=== PATIENT | female | born 1950 | race Caucasian/White ===

== ENCOUNTER 2018-02-14 13:36 | Inpatient (IN) | payer OTHER, MEDICARE ==
[~2018-02-14] VITALS: Ht 152.4 cm; Wt 92.5 kg
[2018-02-14 13:40] VITALS: BP_SYST 183
--- NOTE | 2018-02-14 13:42 | NUR ---
Pt was placed in bed 3
--- NOTE | 2018-02-14 14:04 | NUR ---
ER at bedside examining patient.
--- NOTE | 2018-02-14 14:05 | NUR ---
Dr Fontana at bedside examining patient
[2018-02-14] MEDS ORDERED: KETOROLAC TROMETHAMINE 15 MG VIAL IVP ONE (14:15)
[2018-02-14] MEDS ORDERED: DIAZEPAM 10 MG/2 ML DISP.SYRIN IVP ONE (14:15)
--- NOTE | 2018-02-14 14:15 | NUR ---
PATIENT C/C OF PAIN TO UPPER AND LOWER BACK. PATIENT STATES IT WAS LIKE A SPASM TYPE PAIN. PATIENT SPOUSE AT BEDSIDE. PATIENT DENIES VOMITING, DIARRHEA, OR NAUSEA. NO OTHER INJURIES OR COMPLAINTS PER PATIENT OR NOTED.
--- NOTE | 2018-02-14 14:37 | NUR ---
DR CARUSO HERE TO SEE PT.
[2018-02-14] MEDS ORDERED: ONDANSETRON HCL 4 MG/2 ML VIAL IVP ONE (14:45)
[2018-02-14] MEDS ORDERED: fentaNYL CITRATE/PF 100 MCG/2 ML AMP IVP ONE ×2 (14:45)
[2018-02-14 14:53] LABS: BASOPHILS # (AUTO) 0.2 K/uL (0.0-0.2); BASOPHILS % (AUTO) 2.2 % (0.0-2.0); EOSINOPHILS # (AUTO) 0.1 K/uL (0.0-0.4); EOSINOPHILS % (AUTO) 1.6 % (0.0-4.0); HEMATOCRIT 42.1 % (36-48); HEMOGLOBIN 13.5 g/dL (12.0-16.0); LYMPHOCYTES # (AUTO) 1.9 K/uL (1.0-5.5); LYMPHOCYTES % (AUTO) 22.8 % (20.5-51.5); MEAN CORPUSCULAR HEMOGLOBIN 25 pg (27-31); MEAN CORPUSCULAR HGB CONC 32 % (32-36); MEAN CORPUSCULAR VOLUME 79 fL (79.0-98.0); MONOCYTES # (AUTO) 0.5 K/uL (0.0-1.0); MONOCYTES % (AUTO) 6.1 % (1.7-9.3); NEUTROPHILS # (AUTO) 5.8 K/uL (1.8-7.7); NEUTROPHILS % (AUTO) 67.3 % (40.0-70.0); PLATELET COUNT (AUTO) 251 K/uL (130-430); RED BLOOD CELL COUNT(AUTO) 5.33 MIL/uL (4.2-6.2); RED CELL DISTRIBUTION WIDTH 13.5 % (9.0-15.0); WHITE BLOOD COUNT (AUTO) 8.5 K/uL (4.8-10.8)
[2018-02-14] MEDS ORDERED: MORPHINE 4 MG/ML INJ. SYRINGE IVP PRN (15:00)
[2018-02-14] MEDS ORDERED: MILK OF MAGNESIA 30 ML UDC PO PRN (15:00)
[2018-02-14 15:07] LABS: CALCIUM 8.9 mg/dL (8.4-11.0); CREATININE 0.49 mg/dL (0.55-1.30); POTASSIUM 3.4 mmol/L (3.5-5.1)
[2018-02-14 15:12] LABS: ALBUMIN 3.4 g/dL (3.4-4.8); TOTAL BILIRUBIN 0.3 mg/dL (0.0-1.0)
--- NOTE | 2018-02-14 15:13 | NUR ---
Pt is unaware of home medications, has a list, will ask for it when he returns to pt's side.
[2018-02-14] MEDS ORDERED: BENA40TA2 PO (15:35)
[2018-02-14] MEDS ORDERED: PRAV20TA PO (15:35)
[2018-02-14] MEDS ORDERED: AMLO5TAB92 PO (15:35)
[2018-02-14] MEDS ORDERED: ATEN50TA PO (15:35)
--- NOTE | 2018-02-14 15:35 | NUR ---
Medication reconciliation completed with information provided by . Any prior medication reconciliation on file was reviewed and corrected.
--- NOTE | 2018-02-14 15:38 | NUR ---
Patient will be admitted to care of Dr Bender. Admitted to Med surg unit. Will go to room 102A. Belongings list completed. Summary report printed. Report will be given at bedside.
--- NOTE | 2018-02-14 15:48 | NUR ---
ADMISSION NOTE Received patient from ER via bret, received report from Altagracia HAM. Patient admitted with diagnosis of Intractable back pain. Patient oriented to hospital routine, call light, toileting and safety-patient verbalized understanding.
--- NOTE | 2018-02-14 15:50 | NUR ---
PATIENT TAKEN TO ROOM 102 REPORT GIVEN TO JITENDRA GILES.
--- NOTE | 2018-02-14 15:55 | NUR ---
CONSULTATION PAGED REASON FOR CONSULTATION:BACK PAIN WAS CONSULT CALLED?Y PERSON WHO WAS NOTIFIED:PHILL CONSULTING PHYSICIAN:IZZY QUIÑONES SECURITY GUARD SUPERVISOR SPECIALTY:PAIN FOUNDER AND PRESIDENT PHONE NUMBER:[phone] ORDERING PHYSICIAN:TRICIA AVALOS
--- NOTE | 2018-02-14 16:00 | NUR ---
NOTES PATIENT AWAKE IN BED. A/OX4. ABLE TO MAKE NEEDS KNOWN. PATIENT STATED BACK PAIN IS MANAGEABLE AT THIS TIME; REPOSITIONED WITH PILLOW AND ICE PACK FOR COMFORT; PATIENT STATED ITS HELPFUL. ROOM AIR. NO ACUTE DISTRESS. NO SOB. RESPIRATION EVEN AND UNLABORED. SKIN WARM AND DRY TO TOUCH. IV TO RFA INTACT AND PATENT WITH NO S/SX REDNESS/INFECTION NOTED TO SITE. ORIENTED PATIENT TO ROOM, BED AND CALL LIGHT AND TO USE FOR ASSIST; PT VERBALIZED UNDERSTANDING. AT BEDSIDE. ALL NEEDS MET. CALL LIGHT IN REACH. CONT TO MONITOR.
[2018-02-14 16:10] VITALS: BP_SYST 158
[2018-02-14] MEDS: METHOCARBAMOL 500 MG TABLET PO SCH ×2 (16:27→21:30)
[2018-02-14 17:41] LABS: BILIRUBIN,URINE NEGATIVE (NEGATIVE); BLOOD, URINE NEGATIVE (NEGATIVE); CLARITY/URINE CLEAR (CLEAR); COLOR,URINE YELLOW (YELLOW); GLUCOSE,URINE NEGATIVE (NEGATIVE); KETONES,URINE NEGATIVE (NEGATIVE); LEUKOCYTE ESTERASE ,URINE NEGATIVE (NEGATIVE); NITRITE, URINE NEGATIVE (NEGATIVE); PROTEIN URINE NEGATIVE (NEGATIVE); UROBILINOGEN,URINE 0.2 (0.2-1.0)
[2018-02-14] MEDS: cloNIDine HCL 0.1 MG TABLET PO PRN (17:47)
--- NOTE | 2018-02-14 17:47 | NUR ---
BP PATIENT BLOOD PRESSURE 166/71 HR 65; CLONIDINE ADMINISTERED ORDERED, SHUKRI WELL. ALL NEEDS MET. CALL LIGHT IN REACH. CONT TO MONITOR
--- NOTE | 2018-02-14 18:30 | NUR ---
BP BLOOD PRESSURE AT THIS TIME 152/74 AND HR 70. PATIENT STABLE. DENIES ANY DISCOMFORT. ALL NEEDS MET. CONT TO MONITOR
--- NOTE | 2018-02-14 18:51 | NUR ---
CLOSING NOTE PATIENT STABLE. PATIENT STATED PAIN IS MANAGEABLE AT THIS TIME WITH PILLOW AND ICE PACK. BP 158/76 AND HR 63 AT THIS TIME. DENIES ANY PALPATATIONS. NO ACUTE DISTRESS. NO SOB. RESPIRATION EVEN AND UNLABORED.SKIN WARM AND DRY TO TOUCH. ALL NEEDS MET.CALL LIGHT IN REACH. CONT TO MONITOR.
--- NOTE | 2018-02-14 19:15 | NUR ---
OPENING NOTE Received report from JITENDRA Carbone. Patient resting in bed awake, alert, oriented x4. Breathing unlabored and even on room air. No signs of distress, no needs at this time. Fall and safety precautions in place. Bed in lowest position, brake on, alarm on, call light within reach. IV access saline locked. Will continue to monitor.
[2018-02-14 20:00] VITALS: BP_SYST 141
[2018-02-14] MEDS ORDERED: TEMAZEPAM 15 MG CAPSULE PO PRN (21:00)
[2018-02-14] MEDS: HYDROcodone/ACETAMIN 5-325 MG TAB (NORCO/ VICODIN) PO PRN (21:29)
[2018-02-14] MEDS: ATENOLOL 50 MG TABLET (TENORMIN) PO SCH (21:30)
--- NOTE | 2018-02-14 21:43 | NUR ---
Med pass. Pt c/o pain 11/17. Administered PRN norco as ordered. Educated pt on safety and side effects. Encouraged call for assist.
--- NOTE | 2018-02-14 23:38 | NUR ---
Patient resting in bed with eyes closed. Breathing unlabored and even on room air. No signs of distress, no needs at this time. Fall and safety precautions in place. Bed in lowest position, brake on, alarm on, call light within reach. Will continue to monitor.
[2018-02-15 00:40] VITALS: BP_SYST 135
[2018-02-15] MEDS: HYDROcodone/ACETAMIN 5-325 MG TAB (NORCO/ VICODIN) PO PRN ×3 (03:52→21:28)
--- NOTE | 2018-02-15 03:54 | NUR ---
Pt c/o pain 10/18. Administered PRN [place] PO as ordered. Educated pt on safety and side effects. Encouraged call for assist.
--- NOTE | 2018-02-15 05:48 | NUR ---
MRI consent signed
[2018-02-15 06:54] LABS: ALBUMIN 3.3 g/dL (3.4-4.8); BILIRUBIN,DIRECT 0.1 mg/dL (0.0-0.3); TOTAL BILIRUBIN 0.4 mg/dL (0.0-1.0)
--- NOTE | 2018-02-15 07:22 | NUR ---
CLOSING NOTE Patient resting in bed with eyes closed. Breathing unlabored and even on room air. No signs of distress, no needs at this time. Fall and safety precautions in place. Bed in lowest position, brake on, alarm on, call light within reach. Endorsed care to Tona day shift RN.
[2018-02-15 07:30] LABS: THYROID STIMULATING HORMONE 0.8 uIu/mL (0.34-4.82)
--- NOTE | 2018-02-15 07:40 | NUR ---
INITIAL NOTE RECEIVED PATIENT FROM WIRELESS TELEGRAPHER. PATIENT AWAKE IN BED AND STATED PAIN IS MANAGEABLE AT THIS TIME. REPOSITIONED PATIENT FOR BREAKFAST, SHUKRI WELL. NO ACUTE DISTRESS. NO SOB. RESPIRATION EVEN AND UNLABORED. SKIN WARM AND DRY TO TOUCH. IV INTACT AND PATENT WITH NO REDNESS NOTED TO SITE; SALINE LOCK. ORIENTED PATIENT TO CALL LIGHT AND TO USE FOR ASSIST; PATIENT VERBALIZED UNDERSTANDING. ALL NEEDS MET. BED IN LOW AND LOCKED POSITION. SIDERAIL UP X2. BED ALARM ON. CALL LIGHT IN REACH. CONT TO MONITOR.
--- NOTE | 2018-02-15 07:54 | NUR ---
Nutrition Update Davi Scale 17 noted. Pt admitted for intractable back pain Diet: 2gm Na diet BMI: 39.8 kg/m2 RD to follow per nutrition care standards.
[2018-02-15 08:00] VITALS: BP_SYST 153
[2018-02-15] MEDS: amLODIPine BESYLATE 5 MG TABLET PO SCH (08:39)
[2018-02-15] MEDS: DOCUSATE SODIUM 100 MG CAPSULE PO SCH (08:40)
[2018-02-15] MEDS: METHOCARBAMOL 500 MG TABLET PO SCH ×3 (08:40→20:08)
--- NOTE | 2018-02-15 08:45 | NUR ---
MEDS ALL DUE MEDS ADMINISTERED ORDERED, SHUKRI WELL. ASSISTED WITH REPOSITIONING WITH PILLOW FOR COMFORT, SHUKRI WELL. ALL NEEDS MET. CALL LIGHT IN REACH. CONT TO MONITOR.
--- NOTE | 2018-02-15 09:30 | NUR ---
NOTES PATIENT AMBULATED WITH PHYSICAL THERAPY WITH WALKER, SHUKRI WELL. CONT TO MONITOR
--- NOTE | 2018-02-15 10:00 | NUR ---
PAIN ASSISTED PATIENT TO BATHROOM USING FRONT WHEEL WALKER, SHUKRI WELL. NORCO ADMINISTERED FOR 6/10 BACK PAIN, SHUKRI WELL. ALL NEEDS MET. CONT TO MONITOR. CALL LIGHT IN REACH.
--- NOTE | 2018-02-15 10:05 | NUR ---
OFF UNIT PATIENT TAKEN TO MRI VIA WHEELCHAIR. PATIENT STABLE. VITAL SIGN STABLE.
--- NOTE | 2018-02-15 12:10 | NUR ---
ON UNIT PATIENT RETURNED FROM MRI. VITAL SIGN STABLE. REPOSITIONED FOR COMFORT. ALL NEEDS MET. CONT TO MONITOR. CALL LIGHT IN REACH.
[2018-02-15 12:24] VITALS: BP_SYST 153
[2018-02-15] MEDS: ACETAMINOPHEN 500 MG TABLET PO PRN (13:10)
--- NOTE | 2018-02-15 14:00 | NUR ---
SEEN AND EXAMINED BY AT BEDSIDE. ALL NEEDS MET. CONT TO MONITOR
[2018-02-15] MEDS ORDERED: POTASSIUM CHLORIDE 20 MEQ TAB.PRT.SR PO ONE (14:15)
--- NOTE | 2018-02-15 14:46 | NUR ---
K KDUR ADMINISTERED ORDERED PER FOR POTASSIUM 3.4; SHUKRI WELL. ALL NEEDS MET. CONT TO MONITOR. CALL LIGHT IN REACH. CONT TO MONITOR
[2018-02-15 16:12] VITALS: BP_SYST 122
--- NOTE | 2018-02-15 17:00 | NUR ---
NOTES PATIENT STABLE. RESTING IN BED, EASILY AROUSABLE. NO ACUTE DISTRESS. NO SOB. RESPIRATION EVEN AND UNLABORED. ALL NEEDS MET. CONT TO MONITOR. CALL LIGHT IN REACH.
--- NOTE | 2018-02-15 18:55 | NUR ---
CLOSING NOTE PATIENT STABLE. NO ACUTE DISTRESS. NO SOB. RESPIRATION EVEN AND UNLABORED. SKIN WARM AND DRY TO TOUCH. IV INTACT AND PATENT. PATIENT AMBULATING IN ROOM WITH SLOW STEADY GAIT. ALL NEEDS MET. CALL LIGHT IN REACH. CONT TO MONITOR. WILL ENDORSE TO ONCOMING SHIFT.
--- NOTE | 2018-02-15 19:15 | NUR ---
OPENING NOTE Received report from JITENDRA Carbone. Patient resting in bed awake, alert, oriented x4. Breathing unlabored and even on room air. No signs of distress, no needs at this time. Fall and safety precautions in place. Bed in lowest position, brake on, alarm on, call light within reach. Will continue to monitor.
[2018-02-15] MEDS: ATENOLOL 50 MG TABLET (TENORMIN) PO SCH (20:08)
--- NOTE | 2018-02-15 20:14 | NUR ---
Med pass. Pt c/o constipation. Administered PRN MOM PO as ordered. Educated pt on side effects.
[2018-02-15 20:59] VITALS: BP_SYST 144
--- NOTE | 2018-02-15 21:17 | NUR ---
Assisted pt to the bathroom. UOP x1.
--- NOTE | 2018-02-15 21:30 | NUR ---
Pt c/o pain. Administered PRN norco PO as ordered. Educated pt on safety and side effects. Encouraged call for assist. Bed alarm on. Pillow support in place.
[2018-02-16 00:32] VITALS: BP_SYST 160
[2018-02-16] MEDS: ACETAMINOPHEN 500 MG TABLET PO PRN ×3 (01:58→16:59)
--- NOTE | 2018-02-16 02:00 | NUR ---
Pt c/o pain 12/18. Administered PRN tylenol PO as ordered. Educated pt on safety and side effects. Encouraged call for assist.
[2018-02-16] MEDS: HYDROcodone/ACETAMIN 5-325 MG TAB (NORCO/ VICODIN) PO PRN ×2 (05:01→13:54)
--- NOTE | 2018-02-16 05:02 | NUR ---
Pt c/o pain 11/17. Administered PRN norco PO as ordered. Educated pt on safety and side effects. Encouraged call for assist.
--- NOTE | 2018-02-16 06:51 | NUR ---
CLOSING NOTE Patient resting in bed with eyes closed. Breathing unlabored and even on room air. No signs of distress, no needs at this time. All needs met throughout shift. Fall and safety precautions in place throughout shift. Bed in lowest position, brake on, alarm on, call light within reach. Will endorse cares to day shift nurse.
[2018-02-16 06:53] LABS: CALCIUM 8.6 mg/dL (8.4-11.0); CREATININE 0.51 mg/dL (0.55-1.30); POTASSIUM 3.9 mmol/L (3.5-5.1)
[2018-02-16 08:00] VITALS: BP_SYST 127
--- NOTE | 2018-02-16 08:00 | NUR ---
Opening Note received report from warehouse supervisor 3rd shift RN, pt resting in bed, A&Ox4, respirations even and unlabored on room air, pain controlled at this time, IV site clean, dry, and intact, pt educated on use of call light and asked to call for assistance, pt verbalized understanding, call light in reach, bed in low position, bed alarm on, fall and aspiration precautions in place.
[2018-02-16] MEDS: amLODIPine BESYLATE 5 MG TABLET PO SCH (08:19)
[2018-02-16] MEDS: METHOCARBAMOL 500 MG TABLET PO SCH ×2 (08:19→15:02)
[2018-02-16] MEDS: DOCUSATE SODIUM 100 MG CAPSULE PO SCH (08:20)
--- NOTE | 2018-02-16 08:27 | NUR ---
Pain Management/Medication pt complaint of pain 12/18 to lower back, pt educted on use and side effects of PRN pain medications and all medications, pt verbalized understanding, tolerated medication administration well, no additional needs at this time, fall and aspiration precautions in place.
--- NOTE | 2018-02-16 10:00 | NUR ---
Physical Therapy physical therapy at bedside working with pt, pt tolerating well.
[2018-02-16 12:11] VITALS: BP_SYST 152
--- NOTE | 2018-02-16 12:26 | NUR ---
RN Rounds pt resting in bed, pain controlled at this time, respirations even and unlabored on room air, no additional needs, fall and aspiration precautions in place.
--- NOTE | 2018-02-16 13:50 | NUR ---
Pain Management/Medication pt complaint of pain 5/10 to lower back, pt educated on use and side effects of PRN pain medication, pt verbalized understanding, tolerated medication administration well, no additional needs at this time, fall and aspiration precautions in place.
--- NOTE | 2018-02-16 14:00 | NUR ---
Rounds Dr. Bender at bedside speaking with Pt. Addendum: 02/16/18 at 1414 by Su Calhoun RN MD aware of pt last BM of 02/11/18, new orders received. Addendum: 02/16/18 at 1851 by Su Calhoun RN add: per accuchecks not needed indicated for pt, borderline DM.
[2018-02-16] MEDS ORDERED: MAGNESIUM CITRATE 300 ML ORAL SOLUTION PO ONE (14:15)
[2018-02-16] MEDS ORDERED: BISACODYL 10 MG/SUPPOSITORY RC ONE (14:15)
--- NOTE | 2018-02-16 14:55 | NUR ---
Medication/Education pt and spouse educated on magnesium citrate use and side effects, pt refusing medication, fall and aspiration precautions in place. Addendum: 02/16/18 at 1503 by Su Calhoun RN pt stated that she wishes to take her own medication at home.
--- NOTE | 2018-02-16 15:03 | NUR ---
Medication pt educated on medication use and side effects, pt verbalized understanding, tolerated medication administration well, no additional needs at this time, fall and aspiration precautions in place.
[2018-02-16 15:20] VITALS: BP_SYST 143
--- NOTE | 2018-02-16 15:30 | NUR ---
DC Planning: late entry: cm spoke with pt. regarding d/c to home and to f/u with dr. Bender for out patient rehab. The pt stated the out patient provides more aggressive therapy than home PT. She will f/u with dr. Bender to get the continue therapy at [facility] out patient rehab.
[2018-02-16] MEDS: cloNIDine HCL 0.1 MG TABLET PO PRN (16:11)
--- NOTE | 2018-02-16 16:13 | NUR ---
Medication/Blood pressure pt blood pressure 169/78, heart rate 53, PRN blood pressure medication indicated, pt educated on use and side effects of PRN blood pressure medication, pt tolerated well, no additional needs at this time, fall and aspiration precautions in place, awaiting pt spouse for discharge.
[2018-02-16 16:32] VITALS: BP_SYST 169
--- NOTE | 2018-02-16 16:50 | NUR ---
Pain Management/Blood pressure pt complaint of pain 4/10 to lower back, pt educated on use and side effects PRN tylenol, pt verbalized understanding, tolerated medication administration well, pts BP 143/77, heart rate 56, no additional needs at this time, fall and aspiration precautions in place.
--- NOTE | 2018-02-16 17:23 | NUR ---
Discharge orders for discharge home, Dr. Bender will arrange follow up care for pt, pt instructed to see Dr. Bender in one week, Dr. Bender called pharmacy for norco perscription, pt has walker at home, pt given discharge packet and instructions, IV catheter removed, catheter intact, no bleeding, hospital ID band removed, pt stable for discharge home, pt accompanied by spouse, all belongings sent with pt, pt taken to parking lot via wheelchair.
--- NOTE | 2018-02-17 13:42 | NUR ---
Discharge Follow Up Phone Call: [employer] called and spoke with pt ([phone]). Pt states that she is doing ok, but is still having some pain; pt's prescriptions have been filled; there are no questions regarding discharge or medication instructions; pt will schedule a follow up appointment with PCP, Dr. Bender. [employer] offered to schedule pt's follow up appointment, but pt states that she will schedule the appointment. Pt did not express any other needs or concerns and denied the need for additional follow up at this time. No further follow up phone calls required at this time.
== END 2018-02-16 17:30 | disposition home or self-care (01) | DRG 552 ==
LOC: SED 13:36 → SMU 14:37
PROVIDERS: ADMIT Family Medicine; ATTEND Family Medicine
DX: M47.897 Other spondylosis, lumbosacral region (principal); M48.54XA Collapsed vertebra, not elsewhere classified, thoracic region, initial encounter for fracture; E66.01 Morbid (severe) obesity due to excess calories; R73.03 Prediabetes; I48.91 Unspecified atrial fibrillation; E87.6 Hypokalemia; I10 Essential (primary) hypertension; E78.5 Hyperlipidemia, unspecified; Z90.710 Acquired absence of both cervix and uterus; Z91.14 Patient's other noncompliance with medication regimen; Z88.0 Allergy status to penicillin; Z79.899 Other long term (current) drug therapy; Z71.3 Dietary counseling and surveillance; Z68.39 Body mass index [BMI] 39.0-39.9, adult
CPT/HCPCS: 36415; 72072-TC; 72146; 72148; 80048; 80053; 80061; 80076; 81003; 83036; 84443-TC; 85025; 93005; 96374; 96375; 97116-GP; 97530-GP; 99285; J1885; J2270; J2405; J3010; J3360

== ENCOUNTER 2018-10-16 13:38 | Inpatient (IN) | payer MEDICARE, OTHER ==
[~2018-10-16] VITALS: Ht 152.4 cm; Wt 91.6 kg
[~2018-10-16 13:38] MED LIST: AMLO5TAB92 PO; ATEN50TA PO; BENA40TA8 PO; PRAV20TA PO
[2018-10-16 13:45] VITALS: BP_SYST 153
[2018-10-16 14:44] LABS: BASOPHILS # (AUTO) 0.1 K/uL (0.0-0.2); BASOPHILS % (AUTO) 0.7 % (0.0-2.0); EOSINOPHILS # (AUTO) 0.1 K/uL (0.0-0.4); EOSINOPHILS % (AUTO) 0.9 % (0.0-4.0); HEMATOCRIT 44.1 % (36-48); HEMOGLOBIN 13.8 g/dL (12.0-16.0); LYMPHOCYTES # (AUTO) 2.1 K/uL (1.0-5.5); LYMPHOCYTES % (AUTO) 20.7 % (20.5-51.5); MEAN CORPUSCULAR HEMOGLOBIN 25 pg (27-31); MEAN CORPUSCULAR HGB CONC 31 % (32-36); MEAN CORPUSCULAR VOLUME 79 fL (79.0-98.0); MONOCYTES # (AUTO) 0.8 K/uL (0.0-1.0); MONOCYTES % (AUTO) 8.1 % (1.7-9.3); NEUTROPHILS # (AUTO) 7.1 K/uL (1.8-7.7); NEUTROPHILS % (AUTO) 69.6 % (40.0-70.0); PLATELET COUNT (AUTO) 246 K/uL (130-430); RED BLOOD CELL COUNT(AUTO) 5.55 MIL/uL (4.2-6.2); RED CELL DISTRIBUTION WIDTH 14.9 % (9.0-15.0); WHITE BLOOD COUNT (AUTO) 10.2 K/uL (4.8-10.8)
[2018-10-16 14:55] LABS: CALCIUM 8.3 mg/dL (8.4-11.0); CREATININE 0.44 mg/dL (0.55-1.30); POTASSIUM 3.7 mmol/L (3.5-5.1)
[2018-10-16 15:01] LABS: ALBUMIN 3.3 g/dL (3.4-4.8); TOTAL BILIRUBIN 0.2 mg/dL (0.0-1.0)
[2018-10-16 15:24] LABS: PROTHROMBIN TIME 9.9 SECS (9.5-12.5)
[2018-10-16] MEDS ORDERED: ASPIRIN 81 MG TAB.CHEW PO ONE (15:30)
[2018-10-16 16:05] VITALS: BP_SYST 155
[2018-10-16 19:39] VITALS: BP_SYST 128
[2018-10-16] MEDS: BENAZEPRIL HCL 20 MG TABLET (LOTENSIN) PO SCH (20:09)
[2018-10-17 01:11] VITALS: BP_SYST 148
[2018-10-17] MEDS ORDERED: ASPIRIN 325 MG TABLET PO ONE (07:45)
[2018-10-17] MEDS: ATENOLOL 50 MG TABLET (TENORMIN) PO SCH (08:08)
[2018-10-17] MEDS: ATORVASTATIN 10 MG TABLET PO SCH (08:08)
[2018-10-17] MEDS: BENAZEPRIL HCL 20 MG TABLET (LOTENSIN) PO SCH ×2 (08:09→21:57)
[2018-10-17 08:17] VITALS: BP_SYST 176
[2018-10-17 08:41] LABS: THYROID STIMULATING HORMONE 0.86 uIu/mL (0.36-3.74)
[2018-10-17] MEDS ORDERED: PRAVASTATIN SODIUM 20 MG TABLET (PRAVACHOL) PO SCH (09:00)
[2018-10-17 12:11] VITALS: BP_SYST 150
[2018-10-17 16:06] VITALS: BP_SYST 155
[2018-10-17 20:00] VITALS: BP_SYST 161
[2018-10-18 00:11] VITALS: BP_SYST 159
[2018-10-18 08:00] VITALS: BP_SYST 154
[2018-10-18] MEDS: ATORVASTATIN 10 MG TABLET PO SCH (08:30)
[2018-10-18] MEDS: ATENOLOL 50 MG TABLET (TENORMIN) PO SCH (08:31)
[2018-10-18] MEDS: BENAZEPRIL HCL 20 MG TABLET (LOTENSIN) PO SCH (08:32)
[2018-10-18] MEDS ORDERED: ASPIRIN 325 MG TABLET PO SCH (09:00)
[2018-10-18] MEDS ORDERED: APIX2.5T PO (10:36)
[2018-10-18] MEDS ORDERED: ASA81 PO (10:37)
[2018-10-18 10:38] VITALS: BP_SYST 147
== END 2018-10-18 11:50 | disposition home or self-care (01) | DRG 282 ==
LOC: SED 13:38 → STU 15:28
PROVIDERS: ADMIT Internal Medicine Hospice and Palliative Medicine; ATTEND Internal Medicine Hospice and Palliative Medicine
DX: I21.A1 Myocardial infarction type 2 (principal); E66.01 Morbid (severe) obesity due to excess calories; E11.9 Type 2 diabetes mellitus without complications; E78.5 Hyperlipidemia, unspecified; I10 Essential (primary) hypertension; I48.0 Paroxysmal atrial fibrillation; Z68.39 Body mass index [BMI] 39.0-39.9, adult; Z88.0 Allergy status to penicillin; Z79.899 Other long term (current) drug therapy
CPT/HCPCS: 36415; 71045; 80053; 80061; 82550-TC; 83690-TC; 83880; 84443-TC; 84484; 85025; 85379; 85610-TC; 85730-TC; 93005; 93306; 99291; G0378